=== PATIENT | male | born 1980 | race Caucasian/White ===

== ENCOUNTER 2016-07-01 | Outpatient (CLI) | payer OTHER | END 2016-07-01 14:45 | disposition critical access hospital (66) | CPT/HCPCS: A0425; A0429 ==

== ENCOUNTER 2016-07-01 15:12 | Emergency (ER) | payer OTHER | END 2016-07-01 17:23 | disposition home or self-care (01) | DX: R07.89 Other chest pain (principal); F17.200 Nicotine dependence, unspecified, uncomplicated ==

== ENCOUNTER 2016-09-06 00:20 | Emergency (ER) | payer OTHER ==
--- NOTE | 2016-09-06 02:04 | CT Preliminary Report ---
Exam: CT Head W/O IMPRESSION: No acute intracranial process. [facility] SITE ID: [id number]
--- NOTE | 2016-09-06 02:06 | CT Report ---
EXAM: CT HEAD EXAM DATE: 09/06/2016 01:01 AM. CLINICAL HISTORY: Right-sided headache and neck pain. COMPARISON: None. TECHNIQUE: Multiaxial CT images were obtained from the foramen magnum to the vertex. IV contrast: Non e. Reformats: Coronal. In accordance with CT protocol optimization, one or more of the following dose reduction techniques w ere utilized for this exam: automated exposure control, adjustment of mA and/or KV based on patient s ize, or use of iterative reconstructive technique. FINDINGS: Parenchyma: No intraparenchymal hemorrhage. No evidence of mass, midline shift, or CT findings of inf arction. Layton-white differentiation is distinct. Extraaxial Spaces: Normal for age. No subdural or epidural collections identified. Ventricles: Normal in size and position. Sinuses: A tiny mucous retention cysts and several in the left maxillary sinus. The orbits and mastoi d sinuses are unremarkable. Bones: No evidence of fracture or calvarial defect. IMPRESSION: No acute intracranial process. [facility] Referring Provider Line: [phone] SITE ID: [id number]
[2016-09-06] MEDS ORDERED: AZITHROMYCIN 250 MG TABLET PO ONE (02:15)
[2016-09-06] MEDS ORDERED: DEXAMETHASONE 10 MG/ML VIAL ONE (02:15)
[2016-09-06] MEDS: AZITHROMYCIN 250 MG TABLET PO STA (02:19)
[2016-09-06] MEDS: DEXAMETHASONE 10 MG/ML VIAL PO STA (02:19)
--- NOTE | 2016-09-06 02:19 | ED Physician Documentation ---
History of Present Illness - Stated complaint Stated Complaint: POP,PAIN IN HEAD - Chief complaint Chief Complaint: Neuro - History obtained from History obtained from: Patient - History of Present Illness Timing: Prior to arrival, Today - Additonal information Additional information: 36 y/o male was in bed when he had a sensation that something struck him in the head specifically on the right pareital area and he heard a "pop" He does not have a headache but he does have some nasal congestion that has been present for about 3-4 days and a slight cough. He has not had fever or ear pain. Review of Systems Constitutional: denies: Fever, Chills, Myalgias, Fatigue Eyes: denies: Decreased vision Ears: denies: Ear pain Nose: reports: Rhinorrhea / runny nose, Congestion Throat: denies: Sore throat Cardiac: denies: Chest pain / pressure, Palpitations Respiratory: reports: Cough. denies: Dyspnea GI: denies: Abdominal Pain, Nausea, Vomiting : denies: Dysuria, Frequency Skin: denies: Rash, Lesions Musculoskeletal: reports: Neck pain. denies: Back pain, Extremity pain Neurologic: denies: Generalized weakness, Focal weakness, Numbness, Headache, Head injury, LOC Psychiatric: reports: Anxiety PD PAST MEDICAL HISTORY - Past Medical History Past Medical History: No Psych: Anxiety - Past Surgical History Past Surgical History: No - Present Medications Home Medications: Ambulatory Orders Medication Instructions Recorded Confirmed ALPRAZolam [Xanax] 0.5 mg PO .FREQ 07/01/16 09/06/16 Azithromycin [Zithromax] 250 mg PO DAILY #4 tablet 09/06/16 Famotidine [Heartburn Prevention] 09/06/16 Polyethylene Glycol 3350 [Miralax] 17 gm PO BID 09/06/16 09/06/16 - Allergies Allergies/Adverse Reactions: Allergies Allergy/AdvReac Type Severity Reaction Status Date / Time No Known Drug Allergies Allergy Unverified 07/01/16 15:17 - Social History Does the pt smoke?: Yes Smoking Status: Current every day smoker Does the pt drink ETOH?: No Does the pt have substance abuse?: No - Immunizations Immunizations are current?: Yes PD ED PE NORMAL - Vitals Vital signs reviewed: Yes (hypertensive ) - General General: Alert and oriented X 3, Well developed/nourished, Other (nervous appearing male ) - HEENT HEENT: Atraumatic, PERRL, EOMI, Other (Both TM's are erythematous with rounding of the landmarks. ) - Neck Neck: Supple, no meningeal sign, No bony TTP, Other (There is adenopathy bilaterally ) - Cardiac Cardiac: RRR, No murmur - Respiratory Respiratory: No respiratory distress, Clear bilaterally - Abdomen Abdomen: Soft, Non tender - Back Back: No CVA TTP, No spinal TTP - Derm Derm: Normal color, No rash - Extremities Extremities: No deformity, No edema - Neuro Neuro: Alert and oriented X 3, tie inspector 2-12 intact, No motor deficit, No sensory deficit, Normal speech - Psych Psych: Normal mood, Normal affect Results - Vitals Vitals: Vital Signs - 24 hr 09/06/16 00:24 Temperature 36.6 C Heart Rate 99 Respiratory 20 Rate Blood Pressure 178/102 H O2 Saturation 100 Oxygen O2 Source Room air - Rads (name of study) CT head without Radiology: Prelim report reviewed (Impression: No acute intracranial process.), EMP read indepedently, See rad report PD MEDICAL DECISION MAKING - ED course Complexity details: reviewed old records, reviewed results, re-evaluated patient , considered differential, d/w patient ED course: 36-year-old male with a history of anxiety presents with a sensation that he was struck in the side of the head and heard a "POP". Here in the emergency department he is examined and is found to have bilateral otitis media and CT scan of the head is unremarkable. He is treated with dexamethasone and zithromax. Departure - Departure Disposition: 01 Home, Self Care Clinical Impression: Otitis media Qualifiers: Otitis media type: suppurative Laterality: bilateral Chronicity: acute Recurrence: not specified as recurrent Spontaneous tympanic membrane rupture: without spontaneous rupture Qualified Code(s): H66.003 - Acute suppurative otitis media without spontaneous rupture of ear drum, bilateral Condition: Stable Instructions: ED Otitis Media Acute Adult Follow-Up: MITZY PALMER [Primary Care Provider] - Prescriptions: Azithromycin [Zithromax] 250 mg PO DAILY #4 tablet Comments: Today in the Emergency Department your blood pressure was elevated. This can happen from the stress of the visit itself, from a current illness or circumstance or from uncontrolled hypertension. If you take blood pressure medications take your usual mediations, have your blood pressure re-checked in an appropriate setting and follow up any elevation with your primary care doctor.
[2016-09-06 02:44] VITALS: BP 145/89
== END 2016-09-06 02:32 | disposition home or self-care (01) ==
LOC: ED 00:20
DX: H66.93 Otitis media, unspecified, bilateral (principal); F17.200 Nicotine dependence, unspecified, uncomplicated
CPT/HCPCS: 70450; 99283; 99284

== ENCOUNTER 2016-12-05 12:07 | Emergency (ER) | payer OTHER ==
[2016-12-05 12:13] VITALS: BP 145/79
--- NOTE | 2016-12-05 13:13 | XRAY Preliminary Report ---
Exam: XR Foot 3 View RT IMPRESSION: 1. Soft tissue swelling adjacent to first MTP joint. No fracture or dislocation. 2. Otherwise unremarkable plain film exam of right foot. [facility] SITE ID: [id number]
--- NOTE | 2016-12-05 13:16 | XRAY Report ---
EXAM: RIGHT FOOT RADIOGRAPHY EXAM DATE: 12/05/2016 01:01 PM. CLINICAL HISTORY: Right foot/toe injury yesterday. Pain at base of great toe/first metatarsal. COMPARISON: None. TECHNIQUE: 3 views. FINDINGS: Bones: Normal. No fractures or bone lesions. Joints: Normal. No subluxations. Soft Tissues: Soft tissue swelling adjacent to first MTP joint IMPRESSION: 1. Soft tissue swelling adjacent to first MTP joint. No fracture or dislocation. 2. Otherwise unremarkable plain film exam of right foot. [facility] Referring Provider Line: [phone] SITE ID: [id number]
--- NOTE | 2016-12-05 14:51 | ED Physician Documentation ---
PD HPI LOWER EXT INJURY - Stated complaint Stated Complaint: R TOE INJ - Chief complaint Chief Complaint: Ext Problem - History obtained from History obtained from: Patient - History of Present Illness PD HPI LOW EXT INJURY LOCATION: Right, Toe (great) Type of injury: Blunt / blow Where injury occurred: Home Timing - onset: Yesterday Timing - duration: Days (1) Timing - details: Abrupt onset, Still present Improved by: Rest, Immobilization Worsened by: Moving, Palpating Associated symptoms: Swelling Similar symptoms before: Has not had sx before Recently seen: Not recently seen - Additional information Additional information: 36-year-old male struck his right great toe yesterday and has significant pain throughout the night and today. He is walking on the outside portion of his foot is concerned about fracture. Review of Systems Constitutional: denies: Fever Respiratory: denies: Cough GI: denies: Vomiting Musculoskeletal: reports: Extremity pain, Extremity swelling, Joint swelling, Pain with weight bearing. denies: Neck pain, Back pain Neurologic: denies: Generalized weakness, Focal weakness, Numbness PD PAST MEDICAL HISTORY - Past Medical History Past Medical History: Yes Psych: Anxiety - Past Surgical History Past Surgical History: No - Present Medications Home Medications: Ambulatory Orders Medication Instructions Recorded Confirmed ALPRAZolam [Xanax] 0.5 mg PO .FREQ 07/01/16 09/06/16 Azithromycin [Zithromax] 250 mg PO DAILY #4 tablet 09/06/16 Famotidine [Heartburn Prevention] 09/06/16 Polyethylene Glycol 3350 [Miralax] 17 gm PO BID 09/06/16 09/06/16 - Allergies Allergies/Adverse Reactions: Allergies Allergy/AdvReac Type Severity Reaction Status Date / Time No Known Drug Allergies Allergy Unverified 07/01/16 15:17 - Social History Does the pt smoke?: Yes Smoking Status: Current every day smoker Does the pt drink ETOH?: No Does the pt have substance abuse?: No - Immunizations Immunizations are current?: Yes PD ED PE NORMAL - Vitals Vital signs reviewed: Yes (hypertensive ) - General General: No acute distress, Well developed/nourished - HEENT HEENT: Atraumatic, PERRL - Neck Neck: Supple, no meningeal sign - Respiratory Respiratory: No respiratory distress - Derm Derm: Normal color, Warm and dry, No rash - Extremities Extremities: No deformity, Other (There is swelling and tenderness to the right great toe at the MTP joint and tenderness to the distal MT. The distal n/v is intact. ) - Neuro Neuro: No motor deficit, No sensory deficit - Psych Psych: Normal mood, Normal affect Results - Vitals Vitals: Vital Signs - 24 hr 12/05/16 12:12 Temperature 36.4 C L Heart Rate 71 Respiratory 16 Rate Blood Pressure 145/79 H O2 Saturation 99 Oxygen O2 Source Room air - Rads (name of study) Right foot Radiology: Prelim report reviewed (Impression:. Soft tissue swelling adjacent to the first MTP joint. No fracture or dislocation.2. Otherwise unremarkable plain film exam of the right foot.), EMP read indepedently, See rad report PD MEDICAL DECISION MAKING - ED course Complexity details: reviewed results, re-evaluated patient, considered differential, d/w patient ED course: 36-year-old male with a toe contusion does not have fracture he is comfortable with walking on the outside of his foot. Departure - Departure Disposition: 01 Home, Self Care Clinical Impression: Contusion of toe of right foot Qualifiers: Encounter type: initial encounter Toe: great toe Damage to nail status: without damage Qualified Code(s): S90.111A - Contusion of right great toe without damage to nail, initial encounter Condition: Stable Instructions: ED Contusion Lower Ext Follow-Up: MITZY PALMER [Primary Care Provider] -
== END 2016-12-05 14:57 | disposition home or self-care (01) ==
LOC: ED 12:07
DX: S90.111A Contusion of right great toe without damage to nail, initial encounter (principal); W22.8XXA Striking against or struck by other objects, initial encounter; Y92.028 Other place in mobile home as the place of occurrence of the external cause; F17.200 Nicotine dependence, unspecified, uncomplicated
CPT/HCPCS: 99283

== ENCOUNTER 2018-04-11 12:31 | Outpatient (CLI) | payer OTHER ==
--- NOTE | 2018-04-11 16:32 | MRI Report ---
Reason: PAIN IN RIGHT KNEE Procedure Date: 04/11/2018 Accession Number: [id number] / [id number] Procedure: MRI - Knee RT W/O CPT Code: FULL RESULT: EXAM: RIGHT KNEE MRI WITHOUT CONTRAST EXAM DATE: 04/11/2018 01:19 PM. CLINICAL HISTORY: PAIN IN RIGHT KNEE. COMPARISON: None. TECHNIQUE: Multiplanar, multisequence T1-weighted and fluid-sensitive sequences of the knee without contrast. Other: None. FINDINGS: Bones: No fractures or subluxations. No marrow edema. No bone lesions. Articular Cartilage: Unremarkable. Medial Meniscus: The medial meniscus is intact. Lateral Meniscus: The lateral meniscus is intact. Cruciate Ligaments: The anterior and posterior cruciate ligaments are intact. Collateral Ligaments: The medial collateral and lateral collateral ligamentous structures are intact. Tendons: The quadriceps, patellar, semimembranosus, and popliteus tendons are unremarkable. Musculature: No edema or fatty atrophy. Other: Small fluid collection lateral patellar recess. No popliteal cyst. No loose bodies. The medial and lateral retinacula are intact. The subcutaneous tissues and fat pads are unremarkable. IMPRESSION: Negative for meniscus tear or internal derangement. [facility] MUSCULOSKELETAL RADIOLOGY SECTION
== END 2018-04-11 12:32 | disposition home or self-care (01) ==
LOC: DI 12:31
PROVIDERS: ATTEND General Practice
DX: M25.561 Pain in right knee (principal)

== ENCOUNTER 2018-05-18 15:05 | Outpatient (CLI) | payer OTHER ==
--- NOTE | 2018-05-19 13:21 | MRI Report ---
Reason: OTHER SPECIFIED DISORDERS OF BONE, SHOULDER Procedure Date: 05/18/2018 Accession Number: [id number] / [id number] Procedure: MRI - Cervical Spine W/O CPT Code: FULL RESULT: EXAM: MRI CERVICAL SPINE WITHOUT CONTRAST EXAM DATE: 05/18/2018 04:28 PM. CLINICAL HISTORY: Neck pain. COMPARISONS: None. TECHNIQUE: Multiplanar, multisequence T1-weighted and fluid-sensitive sequences of the cervical spine without contrast. Other: None. FINDINGS: Evaluation mildly limited due to artifact, particularly on the axial sequences. Neurologic Structures: The visualized posterior fossa structures are unremarkable. No signal abnormality in the visualized spinal cord. Alignment: No scoliosis or spondylolisthesis. Bone Marrow: No gross fractures or bone lesions. No marrow edema. Interspace Levels/Facets: C1-C2: Minimal degenerative change anteriorly. C2-C3: Minimal left uncovertebral hypertrophy. No stenosis. C3-C4: Minimal disk osteophyte complex. No stenosis. C4-C5: Minimal disk osteophyte complex. No stenosis. C5-C6: Minimal disk osteophyte complex with small central disk protrusion and focal high intensity zone. No stenosis. C6-C7: Small disk osteophyte complex with central disk protrusion. Minimal central canal stenosis. C7-T1: Unremarkable. Musculature: Normal. No edema or fatty atrophy. Other: The paravertebral and prevertebral soft tissues are normal. IMPRESSION: 1. Minimal degenerative disk changes. 2. Disk osteophyte complex at C6-C7 results in minimal central canal stenosis. 3. Minimal disk osteophyte complex with small central disk protrusion and annular tear at C5-C6 without gross central canal stenosis. 4. No neural foramen stenosis. [facility]
== END 2018-05-18 15:06 | disposition home or self-care (01) ==
LOC: DI 15:05
DX: M50.10 Cervical disc disorder with radiculopathy, unspecified cervical region (principal); M50.122 Cervical disc disorder at C5-C6 level with radiculopathy; M25.78 Osteophyte, vertebrae; M54.6 Pain in thoracic spine; M89.8X1 Other specified disorders of bone, shoulder
CPT/HCPCS: 72141

== ENCOUNTER 2018-08-29 08:37 | Outpatient (CLI) | payer OTHER ==
[2018-08-29] MEDS ORDERED: GADOBUTROL 10 MMOL/10 ML VIAL ONE (09:53)
--- NOTE | 2018-08-29 13:09 | MRI Report ---
Reason: OTHER SPECIFIED DISORDERS OF BONE,SHOULDER Procedure Date: 08/29/2018 Accession Number: [id number] / [id number] Procedure: MRI - Thoracic Spine W/O CPT Code: FULL RESULT: EXAM: MRI THORACIC SPINE WITHOUT CONTRAST EXAM DATE: 08/29/2018 09:49 AM. CLINICAL HISTORY: Mid back and scapula pain. COMPARISONS: None. TECHNIQUE: Multiplanar, multisequence T1-weighted and fluid-sensitive sequences of the thoracic spine from C7 to L1 without contrast. Other: None. FINDINGS: No suspicious marrow replacement is seen. No significant spondylolisthesis is present. Disk space height is preserved. No posterior disk protrusion is seen. No central canal or foraminal stenosis. No paraspinal muscle edema is present. No abnormal T2 signal is present in the thoracic spinal cord. IMPRESSION: 1. Normal MRI of the thoracic spine. [facility]
--- NOTE | 2018-08-29 14:56 | MRI Report ---
Reason: OTHER SPECIFIED DISORDERS OF BONE,SHOULDER Procedure Date: 08/29/2018 Accession Number: [id number] / [id number] Procedure: MRI - Chest W/WO CPT Code: FULL RESULT: EXAM: LEFT SCAPULA MRI WITHOUT CONTRAST EXAM DATE: 08/29/2018 10:44 AM. CLINICAL HISTORY: Other specified disorders of bone, shoulder. COMPARISON: THORACIC SPINE W/O 08/29/2018 9:04 AM CERVICAL SPINE W/O 05/18/2018 4:02 PM. TECHNIQUE: Multiplanar, multisequence T1-weighted and fluid-sensitive sequences of the left scapular region without contrast. Other: Please note that the examination was aborted at the patient's request and planned contrast administration did not occur. Only limited noncontrast sequences were obtained. FINDINGS: Glenohumeral Region: Within the limited acquired sequences which were not dedicated towards evaluation of the shoulder: No subluxation. No effusion or loose bodies. The articular cartilage is unremarkable. The glenohumeral ligaments and joint capsule are unremarkable. Bone Marrow: No fracture, marrow edema or bone lesions. Musculature: Posterior musculature including infraspinatus and deltoid appears prominent with generally preserved signal on the limited sequences and acquired field of view. No separate discrete mass is identified. There is no obvious osseous mass arising from the visualized scapula. IMPRESSION: Limited/aborted examination with no definite mass detected. [facility]
== END 2018-08-29 08:38 | disposition home or self-care (01) ==
LOC: DI 08:37
PROVIDERS: ATTEND General Practice
DX: M89.8X1 Other specified disorders of bone, shoulder (principal); M54.6 Pain in thoracic spine; M79.603 Pain in arm, unspecified
CPT/HCPCS: 71550; 72146

== ENCOUNTER 2019-04-09 16:09 | Emergency (ER) | payer OTHER ==
[2019-04-09] MEDS ORDERED: cephALEXin 250 MG CAPSULE PO STA (17:26)
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
[2019-04-09 17:32] VITALS: BP 140/90
== END 2019-04-09 17:38 | disposition home or self-care (01) ==
LOC: ED 16:09
DX: L03.116 Cellulitis of left lower limb (principal); F17.200 Nicotine dependence, unspecified, uncomplicated
CPT/HCPCS: 99282; 99283; A9270

== ENCOUNTER 2019-05-19 18:54 | Emergency (ER) | payer OTHER ==
--- NOTE | 2019-05-19 19:40 | ED Physician Documentation ---
History of Present Illness - Stated complaint Stated Complaint: COUGH,BODY ACHES - Chief complaint Chief Complaint: Neuro - History obtained from History obtained from: Patient - History of Present Illness Timing: Other (Previously healthy 39-year-old gentleman has been sick for about 5 days with cough, sore throat, runny nose, body aches, chills. Feeling hot tonight but better now. No recent travel, but got back from the [place] about a month and a half ago.) Review of Systems Ten Systems: 10 systems reviewed and negative Constitutional: reports: Fever, Chills, Myalgias Nose: reports: Rhinorrhea / runny nose Throat: reports: Sore throat Respiratory: reports: Cough. denies: Dyspnea GI: denies: Abdominal Pain, Vomiting, Diarrhea PD PAST MEDICAL HISTORY - Past Medical History Psych: Anxiety - Past Surgical History Past Surgical History: No - Present Medications Home Medications: Ambulatory Orders Medication Instructions Recorded Confirmed Cephalexin [Keflex] 500 mg PO Q6H #28 capsule 04/09/19 Cyclobenzaprine [Flexeril] 10 mg PO TID PRN 04/09/19 04/09/19 - Allergies Allergies/Adverse Reactions: Allergies Allergy/AdvReac Type Severity Reaction Status Date / Time No Known Drug Allergies Allergy Verified 04/09/19 16:29 - Social History Does the pt smoke?: Yes Smoking Status: Current every day smoker Does the pt drink ETOH?: No Does the pt have substance abuse?: No - Immunizations Immunizations are current?: Yes PD ED PE NORMAL - Vitals Vital signs reviewed: Yes - General General: Alert and oriented X 3, No acute distress - HEENT HEENT: PERRL, Ears normal, Moist mucous membranes, Pharynx benign - Neck Neck: Supple, no meningeal sign, No bony TTP - Cardiac Cardiac: RRR, No murmur - Respiratory Respiratory: No respiratory distress, Clear bilaterally - Abdomen Abdomen: Non tender - Neuro Neuro: Alert and oriented X 3, Normal speech Results - Vitals Vitals: Vital Signs - 24 hr 05/19/19 05/19/19 18:58 19:34 Temperature 36.5 C Heart Rate 83 Respiratory 18 16 Rate Blood Pressure 152/109 H 154/93 H O2 Saturation 94 97 Oxygen O2 Source Room air - Rads (name of study) chest 2v Radiology: EMP read contemporaneously (normal) Departure - Departure Disposition: Home, Self Care Clinical Impression: Viral URI with cough Condition: Good Record reviewed to determine appropriate education?: Yes Instructions: ED Viral Syndrome Comments: Call your doctor to arrange a follow-up appointment, make the next available appointment. In the interim, return anytime if worse or if new symptoms develop. Forms: Activity restrictions
--- NOTE | 2019-05-19 20:09 | XRAY Report ---
Reason: cough Procedure Date: 05/19/2019 Accession Number: [id number] / [id number] Procedure: XR - Chest 2 View X-Ray CPT Code: 30854 Final Report FULL RESULT: EXAM: CHEST RADIOGRAPHY EXAM DATE: 05/19/2019 07:32 PM. CLINICAL HISTORY: Cough. COMPARISON: CHEST 1 VIEW 07/01/2016 3:58 PM. TECHNIQUE: 2 views. FINDINGS: Lungs/Pleura: No focal consolidation. No pleural effusion. No pneumothorax. Mildly low expansion. Mediastinum: Heart and mediastinal contours are normal. Other: None. IMPRESSION: No acute cardiopulmonary abnormality. [facility]
[2019-05-19 20:26] VITALS: BP 146/78
== END 2019-05-19 20:26 | disposition home or self-care (01) ==
LOC: ED 18:54
DX: J06.9 Acute upper respiratory infection, unspecified (principal); F17.200 Nicotine dependence, unspecified, uncomplicated
CPT/HCPCS: 71046; 99283; 99284